=== PATIENT | male | born 1955 ===

== ENCOUNTER 2017-06-07 12:47 | Emergency (ER) | payer SELFPAY ==
[2017-06-07 13:24] VITALS: O2SAT 98
[2017-06-07 14:43] LABS: URINE BILIRUBIN NEGATIVE (NEGATIVE); URINE BLOOD NEGATIVE (NEGATIVE); URINE CLARITY Clear (Clear); URINE COLOR Yellow (YELLOW); URINE GLUCOSE (UA) 1+ mg/dL (Normal); URINE LEUKOCYTE ESTERASE NEG Leu/uL (Negative); URINE NITRATE NEGATIVE (NEGATIVE); URINE PROTEIN NEGATIVE (NEGATIVE); URINE UROBILINOGEN NORMAL mg/dL (0.2-1.0)
[2017-06-07] MEDS ORDERED: Lidocaine 5% Patch TD STA (14:53)
--- NOTE | 2017-06-07 15:12 | C.PDOC ---
Time Seen by Provider: 06/07/17 14:26 Chief Complaint (Nursing): Back Pain Past Medical History Vital Signs: Last Vital Signs Temp 98.1 F 06/07/17 13:19 Pulse 101 H 06/07/17 13:19 Resp 18 06/07/17 13:19 BP 122/77 06/07/17 13:19 Pulse Ox 98 06/07/17 13:19 Family History: States: Unknown Family Hx - Social History Hx Alcohol Use: No Hx Substance Use: No - Immunization History Hx Tetanus Toxoid Vaccination: No Hx Influenza Vaccination: Yes Hx Pneumococcal Vaccination: No ED Course And Treatment O2 Sat by Pulse Oximetry: 98 Disposition Counseled Patient/Family Regarding: Diagnosis, Need For Followup, Rx Given - Disposition Disposition: HOME/ ROUTINE Disposition Time: 15:08 Condition: STABLE Additional Instructions: Follow up with the doctor that is currently treating you. Prescriptions: Ibuprofen [Motrin] 600 mg PO TID #24 tab Prednisone [Deltasone] 60 mg PO DAILY #12 tablet Instructions: Sciatica (DC) Forms: [employer] ([place]grin), General Discharge Instructions - POA Present On Arrival: None - Clinical Impression Clinical Impression: Sciatica
[2017-06-07] MEDS ORDERED: Lidocaine 5% Patch TD ONE (15:29)
[2017-06-07 15:33] VITALS: BP 124/78; PULSE 70; RESP 20; TEMP 97.9
== END 2017-06-07 15:40 | disposition home or self-care (01) ==
LOC: C.ER 12:47 → EDBD 12:47 → C.ER 15:40
DX: M54.30 Sciatica, unspecified side (principal)

== ENCOUNTER 2018-08-02 15:30 | Outpatient (CLI) | payer OTHER | END 2018-08-02 15:31 | disposition home or self-care (01) | LOC: C.LAB 15:30 | DX: Z00.00 Encounter for general adult medical examination without abnormal findings (principal) ==